=== PATIENT | female | born 1980 | race Caucasian/White ===

== ENCOUNTER 2021-01-08 15:45 | Inpatient (IN) | payer OTHER ==
[~2021-01-08] VITALS: Ht 172.7 cm; Wt 65.7 kg
[2021-01-08] MEDS ORDERED: BACTROBAN 22GM22 GM TP (16:24)
[2021-01-08] MEDS ORDERED: LIDO2%JEL30 (16:24)
[2021-01-08] MEDS ORDERED: BACTRIM DS 8001 TAB PO (16:24)
[2021-01-08] MEDS ORDERED: PRISTIQ100 MG PO (16:25)
[2021-01-08] MEDS ORDERED: SEROQUEL 1100 MG/TAB PO (16:25)
[2021-01-08] MEDS ORDERED: CLARITIN 1010 MG/TAB PO (16:26)
[2021-01-08] MEDS ORDERED: KLONOPIN 0.5MG0.5 MG PO (16:26)
--- NOTE | 2021-01-08 16:32 | NUR ---
Patient arrives via EMS to room 323. Brianda Cedeño and Laura notified of arrival.
--- NOTE | 2021-01-08 17:30 | NUR ---
Dr Cedeño here to see patient.
[2021-01-08 17:32] VITALS: BP 110/72; PULSE 83; TEMP 98.1
[2021-01-08] MEDS ORDERED: PRISTIQ 50 MG T50 MG PO (17:51)
[2021-01-08] MEDS ORDERED: TYLENOL 325MG325 MG PO (17:53)
[2021-01-08] MEDS ORDERED: ROBITUSSIN100 MG/5 M PO (17:54)
--- NOTE | 2021-01-08 18:17 | NUR ---
Patient alert and oriented, answers questions appropriately. See initial assessment. Pinpoint opening noted to coccyx area, slight redness noted around opening. Moderate amount of purulent drainage noted from coccyx opening. C/o pain with bowel movements. No other c/o at this time.
[2021-01-08 20:23] VITALS: BP 105/68; PULSE 97; TEMP 98.6
--- NOTE | 2021-01-08 21:20 | NUR ---
Pt. sitting up in bed at this time. Pt. is A&OX3, assessment complete. IV to lt. ac patent, Iv fluids infusing per orders. Pt. denies pain or other needs, call light within reach.
[2021-01-08 23:57] VITALS: BP 91/55; PULSE 93; TEMP 98.7
[2021-01-09 03:59] VITALS: BP 92/60; PULSE 79; TEMP 98.3
[2021-01-09 07:15] VITALS: BP 99/61; PULSE 72; TEMP 98
[2021-01-09 07:29] LABS: BASO % 0.5 % (0.0-2.0); EOS # 0.5 (0.0-0.7); EOS % 12.2 % (0-4.0); GRAN % 50.4 % (42.2-75.2); LYMPH # 1.1 (1.2-3.4); LYMPH % 27.5 % (20.0-51.0); MEAN CELL VOLUME 88 fl (80.0-100.0); MEAN CORPUSCULAR HGB CONC 33 g/dl (33.0-37.0); MEAN PLATELET VOLUME 11.2 fl (7.4-10.4); MONO # 0.4 (0.1-0.6); MONO % 9.1 % (1.7-9.3); PLATELET COUNT 214 K/mm3 (130-400); RED BLOOD COUNT 3.33 M/mm3 (4.10-5.30); REDCELL DISTRIBUTION WIDTH-CV 14.4 % (11.5-14.5)
[2021-01-09 07:30] LABS: HEMATOCRIT 29.2 % (37.0-47.0); HEMOGLOBIN 9.7 g/dl (12.5-16.0); MEAN CORPUSCULAR HEMOGLOBIN 29 pg (27.0-31.0)
[2021-01-09 07:36] LABS: ALBUMIN 2.3 gm/dL (3.5-5.0); BILIRUBIN,TOTAL 0.5 mg/dL (0.0-1.0); CALCIUM 8.3 mg/dL (8.4-10.2); CHOLESTEROL RISK RATIO 2.4; CREATININE, serum 0.52 (0.52-1.25); POTASSIUM 3.2 mmol/L (3.4-5.0); TOTAL PROTEIN 4.7 gm/dL (6.4-8.2)
--- NOTE | 2021-01-09 08:54 | NUR ---
Patient alert and oriented, answers questions appropriately. See assessment. Reports minimal amount of drainage from perirectal abscess. Requests to defer assessment of abscess at this time. No other c/o.
--- NOTE | 2021-01-09 09:51 | NUR ---
[facility] met with patient to discuss discharge planning. Patient lives on [address] with her , Nigel (ph#[phone]). Patient receives primary care and her medications from [facility] on [address]. Patient does not use any DME and is independent with [facility]. Patient does not have Advance Directives and was not interested in establishing DPOA-HC at this time. Patient plans to return home upon discharge. SW will continue to follow for discharge needs.
[2021-01-09 10:28] VITALS: BP 94/62; PULSE 70; TEMP 98.1
--- NOTE | 2021-01-09 10:47 | NUR ---
Shift assessment completed. pt states 0/10 pain. Perirectal abscess as minimum purulent drainage. IV NS 125mh/hr running, no redness or swelling. pt refused potassium med 0800 due to just eating breakfast and being full.
[2021-01-09 11:19] LABS: HEMATOCRIT 29.6 % (37.0-47.0); HEMOGLOBIN 9.9 g/dl (12.5-16.0)
[2021-01-09 11:31] LABS: IRON,SERUM 10 ug/dL (35-150)
[2021-01-09 11:40] LABS: TOTAL IRON BINDING CAPACITY 268 ug/dL (265-497)
--- NOTE | 2021-01-09 11:47 | NUR ---
First visit from the sample washer. No needs right now.
[2021-01-09 15:50] VITALS: BP 116/64; PULSE 77; TEMP 98.4
[2021-01-09 20:21] VITALS: BP 111/70; PULSE 91; TEMP 98.3
--- NOTE | 2021-01-09 21:30 | NUR ---
Pt. sitting up in chair knitting. Pt. is A&OX3, assessment complete. IV to rt. forearm patent, fluids infusing per orders. Pt. denies pain. Pt. has home meds that were sent to the pharmacy. Pt. denies further needs, call light within reach.
[2021-01-10 00:24] VITALS: BP 106/64; PULSE 88; TEMP 98.7
[2021-01-10 04:32] VITALS: BP 89/46; PULSE 83; TEMP 97.8
[2021-01-10 07:00] VITALS: BP 102/70; PULSE 67; TEMP 97.5
[2021-01-10 07:04] LABS: MEAN CELL VOLUME 88 fl (80.0-100.0); MEAN CORPUSCULAR HGB CONC 33 g/dl (33.0-37.0); MEAN PLATELET VOLUME 11.1 fl (7.4-10.4); PLATELET COUNT 230 K/mm3 (130-400); RED BLOOD COUNT 3.21 M/mm3 (4.10-5.30); REDCELL DISTRIBUTION WIDTH-CV 14.4 % (11.5-14.5)
[2021-01-10 07:11] LABS: HEMATOCRIT 28.1 % (37.0-47.0); HEMOGLOBIN 9.2 g/dl (12.5-16.0); MEAN CORPUSCULAR HEMOGLOBIN 29 pg (27.0-31.0)
[2021-01-10 07:22] LABS: CALCIUM 8.6 mg/dL (8.4-10.2); CREATININE, serum 0.47 (0.52-1.25); MAGNESIUM 1.8 mg/dL (1.6-2.3); POTASSIUM 3.5 mmol/L (3.4-5.0)
[2021-01-10] MEDS ORDERED: FERROUS SU325 MG/TAB PO (07:49)
--- NOTE | 2021-01-10 08:06 | NUR ---
AM MEDICATIONS GIVEN. POTASSIUM REPLACED PER PROTOCOL. PATIENT ASLEEP IN BED, AROUSES EASILY TO NAME. SHIFT ASSESSMENT COMPLETE. PENCIL POINT ABSCESS ABOVE ANUS DRAINING SCANT AMOUNTS OF SEROSANGUINEOUS DRAINAGE PRESENT ON PORFIRIO-PAD. PATIENT REPORTS APPLYING OWN OINTMENT. PATIENT DENIES PAIN. NO OTHER NEEDS AT THIS TIME.
[2021-01-10 08:42] LABS: BAND 3 % (0-10); BASOPHIL 1 % (0-2); EOSINOPHIL 16 % (0-4); LYMPHOCYTE 45 % (20.0-51.0); NEUTROPHILS 26 % (42.0-75.2)
[2021-01-10 08:43] LABS: HYPOCHROMIA 1+; PLATELET ESTIMATE NORMAL (NORMAL)
[2021-01-10] MEDS ORDERED: AMOXICILLIN 8751 TAB PO (10:26)
--- NOTE | 2021-01-10 11:57 | NUR ---
PATIENTS RIGHT FOREARM INT DISCONTINUED PER PENDING DISCHARGE. TIP INTACT. PATIENT TOLERATED WELL. PATIENT DISCHARGE INSTRUCTIONS REVIEWED WITH PATIENT. QUESTIONS SOUGHT AND ANSWERED. PATIENT PERSONAL BELONGINGS GATHERED. PATIENT AMBULATED WITH SURGICAL STAFF TO PERSONAL VEHICLE. PATIENT DISCHARGED.
== END 2021-01-10 12:00 | disposition home or self-care (01) | DRG 872 ==
LOC: MEDICAL 15:45 → SURG 16:25 → MEDICAL 16:25 → SURG 01-10 12:00
PROVIDERS: Physician Assistant; ADMIT Hospitalist
DX: A41.9 Sepsis, unspecified organism (principal); E87.1 Hypo-osmolality and hyponatremia; F17.290 Nicotine dependence, other tobacco product, uncomplicated; E87.6 Hypokalemia; E83.42 Hypomagnesemia; D64.9 Anemia, unspecified; K60.3 Anal fistula; F41.9 Anxiety disorder, unspecified; R94.31 Abnormal electrocardiogram [ECG] [EKG]; Z90.49 Acquired absence of other specified parts of digestive tract; Z98.84 Bariatric surgery status
CPT/HCPCS: 99222-AI; 99232-AI; 99239; J1650; J2543; J3475; J7030; J7120

== ENCOUNTER 2021-06-10 13:50 | Emergency (ER) | payer OTHER ==
[~2021-06-10] VITALS: Ht 172.7 cm; Wt 62.3 kg
[~2021-06-10 13:50] MED LIST: AMOXICILLIN 8751 TAB PO; BACTRIM DS 8001 TAB PO; BACTROBAN 22GM22 GM TP; CLARITIN 1010 MG/TAB PO; FERROUS SU325 MG/TAB PO; KLONOPIN 0.5MG0.5 MG PO; LIDO2%JEL30; PRISTIQ 50 MG T50 MG PO; PRISTIQ100 MG PO; ROBITUSSIN100 MG/5 M PO; SEROQUEL 1100 MG/TAB PO; TYLENOL 325MG325 MG PO
[2021-06-10 13:59] VITALS: TEMP 98.5
[2021-06-10 14:21] LABS: COLLECTION METHOD CLEAN CATCH
[2021-06-10 14:30] LABS: MUCOUS Present /lpf; PH 5 (5-8); URINE APPEARANCE Cloudy; URINE BACTERIA None Seen /hpf; URINE BILIRUBIN Negative (NEGATIVE); URINE BLOOD Negative (NEGATIVE); URINE COLOR Yellow; URINE GLUCOSE Negative (NEGATIVE); URINE KETONE Negative (NEGATIVE); URINE LEUKOCYTE ESTERASE 1+ (NEGATIVE); URINE NITRATE Negative (NEGATIVE); URINE PROTEIN(semi-quant) Negative (NEGATIVE); URINE UROBILINOGEN Negative (NEGATIVE)
[2021-06-10 14:39] LABS: TRICYCLIC ANTIDEPRESS URINE NEGATIVE
[2021-06-10 14:42] LABS: BASO # 0.1 (0.0-0.2); BASO % 0.6 % (0.0-2.0); EOS # 0.1 (0.0-0.7); EOS % 1.1 % (0-4.0); GRAN # 7.5 (1.4-6.5); GRAN % 65.4 % (42.2-75.2); LYMPH # 2.8 (1.2-3.4); LYMPH % 24.8 % (20.0-51.0); MEAN CELL VOLUME 88 fl (80.0-100.0); MEAN CORPUSCULAR HEMOGLOBIN 28 pg (27.0-31.0); MEAN CORPUSCULAR HGB CONC 32 g/dl (33.0-37.0); MEAN PLATELET VOLUME 10.5 fl (7.4-10.4); MONO # 0.9 (0.1-0.6); MONO % 7.5 % (1.7-9.3); PLATELET COUNT 300 K/mm3 (130-400); RED BLOOD COUNT 3.57 M/mm3 (4.10-5.30); REDCELL DISTRIBUTION WIDTH-CV 13.8 % (11.5-14.5)
[2021-06-10 14:45] LABS: HEMATOCRIT 31.4 % (37.0-47.0)
[2021-06-10] MEDS ORDERED: NORCO 325 MG-51 TAB PO (14:49)
[2021-06-10 14:53] LABS: ACETAMINOPHEN < 10 ug/mL (10-30); ALANINE AMINOTRANSFERASE 15 U/L (4-34); ALBUMIN 3.3 gm/dL (3.5-5.0); ALCOHOL(ethanol),MEDICAL < 10 mg/dL; ALKALINE PHOSPHATASE 67 U/L (50-136); ANION GAP -3 mmol/L (7-16); AST,SGOT 19 U/L (15-37); BILIRUBIN,TOTAL 0.3 mg/dL (0.0-1.0); BLOOD UREA NITROGEN 12 mg/dL (7-17); CALCIUM 9.3 mg/dL (8.4-10.2); CARBON DIOXIDE 29 mmol/L (22-30); CHLORIDE 110 mmol/L (98-107); CREATININE, serum 0.61 (0.52-1.25); GLUCOSE 86 mg/dL (74-106); POTASSIUM 3.4 mmol/L (3.4-5.0); SALICYLATE < 1.0 mg/dL; SODIUM 136 mmol/L (137-145)
[2021-06-11 08:13] VITALS: BP 117/68; PULSE 76
== END 2021-06-11 08:20 ==
LOC: COL.ER 13:50
PROVIDERS: Family Medicine
DX: F32.9 Major depressive disorder, single episode, unspecified (principal); F41.9 Anxiety disorder, unspecified; Z20.822 Contact with and (suspected) exposure to COVID-19; Z79.899 Other long term (current) drug therapy